=== PATIENT | male | born 1980 | race Caucasian/White ===

== ENCOUNTER → 2018-01-10 | Outpatient (CLI) | payer OTHER ==
[2013-08-22 00:01] VITALS: BP 124/72
[~2018-01-10] MED LIST: NAPR220C4; ZOLP10TA
--- NOTE | 2018-01-10 16:25 | KCIC ---
MRI Lumbar Spine without contrast History: Low back pain, lumbar spondylosis, fall last year, pain in both sides of the back with bilateral radiculopathy Technique: Multiplanar, multi sequential noncontrast MR imaging was performed of the lumbar spine. Contrast: None Comparison: None Findings: Lumbar vertebral body stature is maintained. There is minimal posterior subluxation L4 relative L5. There is mild disc desiccation L4-5. Conus terminates at T12. There is no significant marrow edema. T12-L1: There is a likely tiny extrusion extending below the intervertebral disc space centrally. Spinal canal and neural foramina are adequate. L1-L2: Neural foramina and spinal canal are adequate. L2-L3: Neural foramina and spinal canal are adequate. There is negligible disc osteophyte complex. L3-L4: There is minimal facet degenerative change. There is negligible disc osteophyte complex in the inferior right neural foramen with minimal narrowing, left neural foramen and spinal canal adequate. L4-L5: There is disc osteophyte complex and shallow bulge/protrusion with mild indentation upon the ventral thecal sac greatest centrally and in the right lateral recess. There is mild right lateral recess stenosis. There is mild facet degenerative change. There is moderate right and mild left neural foramina compromise. L5-S1: Spinal canal is adequate. There is mild left facet degenerative change, likely [id number] narrowing of the left neural foramen. Right neural foramen is adequate. Impression: 1. There is mild right lateral recess stenosis L4-5. There is moderate narrowing of the right L4-5 and left L5-S1 neural foramina. There is mild spondylosis greatest L4-5. Electronically signed by: Sameer Licea MD (01/10/2018 4:22 PM) [id number]
== END | disposition home or self-care (01) ==
LOC: KCIC MRI 15:35
DX: M47.896 Other spondylosis, lumbar region (principal); M48.061 Spinal stenosis, lumbar region without neurogenic claudication; M25.78 Osteophyte, vertebrae; J45.909 Unspecified asthma, uncomplicated
CPT/HCPCS: 72148